=== PATIENT | female | born 1950 | race Caucasian/White ===

== ENCOUNTER 2020-10-02 08:53 | Outpatient (REF) | payer MEDICARE, SELFPAY ==
--- NOTE | ~2020-10-02 | XR_ITS ---
EXAMINATION: XR CHEST CLINICAL INFORMATION: B94.8 - Sequelae of other specified infectious and parasitic COMPARISON: Chest radiographs 12/02/2019, 10/17/2019 TECHNIQUE: 2 views of the chest were obtained. FINDINGS: The lungs are clear. Pulmonary opacities noted on prior exams have resolved. The vascularity is normal. The heart is normal in size. The costophrenic sulci are clear. Mediastinal contours are unremarkable. There are mild degenerative changes thoracic spine. XR/XR chest 2V IMPRESSION: Lungs clear.
== END 2020-10-02 08:54 | disposition home or self-care (01) ==
LOC: HO.HMGCX 08:53
PROVIDERS: PCP Internal Medicine; Visit Provider Internal Medicine
DX: B94.8 Sequelae of other specified infectious and parasitic diseases (principal)
CPT/HCPCS: 71046

== ENCOUNTER 2020-10-07 14:38 | Outpatient (REF) | payer MEDICARE, SELFPAY ==
--- NOTE | 2020-10-07 16:35 | PFT_ITS ---
INDICATION: Sequelae of other infections. SPIROMETRY: The FEV1 to FVC 90% with an FEV1 of 2.12 L, which is 104% predicted, and an FVC of 2.35 L, which is 87% predicted. No significant response to bronchodilators noted. Maximum voluntary ventilation 126% predicted. TOTAL LUNG CAPACITY: 86% predicted with an expiratory reserve volume of 27% predicted. DIFFUSION CAPACITY: DLCO 67% predicted. COMPARISONS: None. INTERPRETATION: No obstructive nor restrictive ventilatory defects identified. No significant response to bronchodilators noted. Normal maximum voluntary ventilation. The patient does have a mild isolated diffusion impairment. Therefore, occult interstitial lung conditions and/or pulmonary vascular conditions could not be ruled out. Correction for hemoglobin also will be helpful. Clinical correlation warranted. MD DIMPLE Mcclain/COURT / [id number]
== END 2020-10-07 14:39 | disposition home or self-care (01) ==
LOC: HO.RESP 14:38
PROVIDERS: PCP Internal Medicine; Visit Provider Internal Medicine
DX: B94.8 Sequelae of other specified infectious and parasitic diseases (principal); R06.02 Shortness of breath
CPT/HCPCS: 94060; 94727; 94729

== ENCOUNTER 2020-10-15 13:38 | Outpatient (REF) | payer MEDICARE, SELFPAY ==
--- NOTE | 2020-10-15 | PFT_ITS ---
SPIROMETRY: FEV1 of 98% of predicted at 2.00 L. FVC 84% of predicted at 2.25 L. FEV1 to FVC ratio of 0.89. No bronchodilator response. METHACHOLINE CHALLENGE: The patient had no change in FEV1 over the full range of administered methacholine concentrations. IMPRESSION: Normal spirometry. No bronchodilator response. Negative methacholine challenge test. MD ROBERTO CARLOS Dowd/COURT / [id number]
== END 2020-10-15 13:39 | disposition home or self-care (01) ==
LOC: HO.RESP 13:38
PROVIDERS: PCP Internal Medicine; Visit Provider Internal Medicine
DX: B94.9 Sequelae of unspecified infectious and parasitic disease (principal)
CPT/HCPCS: 94070

== ENCOUNTER 2022-07-22 11:24 | Outpatient (REF) | payer MEDICARE, SELFPAY ==
[2022-07-22 12:10] LABS: Influenza A PCR NEGATIVE (Negative); Influenza B PCR NEGATIVE (Negative); Resp Syncy Virus RNA Qual PCR NEGATIVE (Negative); SARS COV2 PCR INHOUSE NEGATIVE (Negative)
== END 2022-07-22 11:25 | disposition home or self-care (01) ==
LOC: HO.LNP 11:24
PROVIDERS: Visit Provider Internal Medicine
DX: R43.9 Unspecified disturbances of smell and taste (principal); J02.9 Acute pharyngitis, unspecified; Z20.822 Contact with and (suspected) exposure to COVID-19
CPT/HCPCS: 0241U

== ENCOUNTER 2023-01-08 06:08 | Outpatient (REF) | payer MEDICARE, SELFPAY ==
[2023-01-08 11:22] LABS: MANUAL DIFF FLAG NO
[2023-01-08 11:28] LABS: Basophils Absolute Auto 0.1 X10*3/uL (0.0-0.2); Basophils Percent Auto 1.3 % (0-2); Eosinophils Absolute Auto 0.3 X10*3/uL (0.0-0.4); Eosinophils Percent Auto 7.1 % (0-4); Hematocrit 42.8 % (37.0-47.0); Hemoglobin 13.7 g/dl (12.0-16.0); Imm Gran Abs Auto 0.01 X10*3/uL (0.00-0.03); Imm Gran Pct Auto 0.2 % (0.0-0.4); Lymphocytes Percent Auto 43.7 % (20-40); Mean Corpuscular Hemoglobin 30.3 pg (27.0-33.0); Mean Corpuscular Volume 94.7 fL (80.0-98.0); Monocytes Absolute Auto 0.7 X10*3/uL (0.1-1.2); Monocytes Percent Auto 16.3 % (2-11); Neutrophils Absolute Auto 1.4 x10*3/uL (2.0-8.3); Neutrophils Percent Auto 31.4 % (45-73); Platelet Count 293 X10*3/uL (160-400); Red Blood Count 4.52 X10*6/uL (4.20-5.50); Red Cell Distribution Width 12.2 % (11.0-16.0); White Blood Count 4.5 X10*3/uL (4.8-10.8)
[2023-01-08 12:29] LABS: Alanine Aminotransferase 21 U/L (0-31); Anion Gap 15 (12-20); Aspartate Amino Transferase 21 U/L (5-31); Blood Urea Nitrogen 23 mg/dL (9-16); Calcium 9.2 mg/dL (8.4-10.2); Carbon Dioxide 26 mmol/L (22-29); Chloride 104 mmol/L (96-108); Cholesterol 203 mg/dL; Estimated Glomerular Filt Rate > 60; Glucose Fasting 110 mg/dL (60-99); HDL Cholesterol 48 mg/dL; Iron 118 mcg/dL (30-160); LDL Cholesterol Calculated 119 mg/dl; Percent Iron Saturation 45 % (15-50); Potassium 4.4 mmol/L (3.3-5.1); Sodium 141 mmol/L (135-145); Total Iron Binding Capacity 260 mcg/dL (228-428); Triglycerides 184 mg/dL; Unsaturated Iron Binding 142 ug/dL
[2023-01-08 13:06] LABS: Vitamin D 25-OH Total 72.3 ng/mL (>30)
== END 2023-01-08 06:09 | disposition home or self-care (01) ==
LOC: HO.HMGCLDS 06:08
PROVIDERS: PCP Internal Medicine; Visit Provider Internal Medicine
DX: I10 Essential (primary) hypertension (principal); D64.9 Anemia, unspecified; Z78.0 Asymptomatic menopausal state
CPT/HCPCS: 36415; 80048; 80061; 82306; 83540; 84450; 84460; 85025

== ENCOUNTER 2023-11-11 08:20 | Outpatient (AMB) | payer MEDICARE, SELFPAY ==
[2023-11-11 08:29] VITALS: BP 126/70; PULSE 81; O2SAT 96; BMI 26.2
--- NOTE | 2023-11-11 08:29 | MHC.PC.OV ---
Vital Signs 11/11/23 08:29 Height 5 ft 1.5 in Weight 141 lb BMI 26.2 BP 126/70 Blood Pressure Location Lt brachial Position Sitting Pulse 81 Pulse Source Pulse Oximeter Pulse Oximetry (%) 96 Oxygen Delivery Method Room Air Intake Visit Reasons: PE Intake Note: Pt is here today for her PE: last colonscopy 2020, bone density scan 10/02/20 Allergies No Known Allergies [No Known Allergies*] Allergy (Verified 11/11/23 08:50) Medication List - Last Reconciled 11/11/23 by Yumi Sifuentes MD albuterol sulfate 90 mcg/actuation 2 inhalations inhalation Q6H PRN antiarthritic combination no.2 (glucosamine-chondroitin) mg PO enalapril maleate 20 mg PO DAILY multivitamin 1 tab PO DAILY Tobacco use date assessed: 11/11/23 Fall risk assessment: No Falls in past year Last assessed Fall Risk: 11/11/23 Dental Screening Dental Screen Date: 11/11/23 Did you have a dental visit in the last 12 months?: Yes Did you have a dental problem in the last 6 months where you did not have access to dental care?: No Was dental information given to patient?: Patient has dentist HPI PE HPI Details -73 year-old lady, here today for her physical exam. She has hypertension, currently stable and controlled on enalapril. She has been feeling well, with no complaints of any fatigue, no chest pain, no lightheadedness, shortness of breath. She is due for her repeat screening colonoscopy, last [address] Douglas in 2015 which showed presence of diverticulosis and external and internal hemorrhoids, has positive family history for Crohn's disease mother had it . She does not want to get screening mammogram or bone density scan done. Goes 3 times a week to the [facility] to exercise, and has been following a healthy diet. She is up-to-date with her vaccinations but has not had RSV . She gets occasional wheezing when she chases after her granddaughter, would like a refill on her albuterol inhaler which she uses only as needed. 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 1. Little interest or pleasure in doing things: not at all 2. Feeling down, depressed, or hopeless: not at all 3. Trouble falling or staying asleep, or sleeping too much: not at all 4. Feeling tired or having little energy: not at all 5. Poor appetite or overeating: not at all 6. Feeling bad about yourself - or that you are a failure or have let yourself or your family down: not at all 7. Trouble concentrating on things, such as reading the newspaper or watching television: not at all 8. Moving or speaking so slowly that other people could have noticed. Or the opposite - being so fidgety or restless that you have been moving around a lot more than usual: not at all 9. Thoughts that you would be better off or of hurting yourself in some way: not at all Total score: 0 Depression Screening Interpretation: Negative Depression Screening Done: Yes 16699 - PHQ-9 Billing: Yes Source: Developed by Drs. Td Martinez, Trisha Hernandez, Fabiano Cook and colleagues, with an educational maryellen from [employer]. Thrive Questionnaire Date Thrive assessed: 11/11/23 I am a: Patient What is your living situation today?: I have a steady place to live Within the past 12 months, did the food you bought not last and you didn't have the money to get more?: Never true Within the past 12 months, did you worry whether your food would run out before you got money to buy more?: Never true Do you have trouble paying for medicines?: No Do you have trouble getting transportation to medical appointments?: No Do you have trouble paying your heating and electricity bill?: No Do you have trouble taking care of your child, family member or friend?: No Do you have trouble with day-to-day activities such as bathing, preparing meals, shopping, managing finances, etc.?: No Are you currently unemployed and looking for a job?: No Are you interested in more education?: No THRIVE Score: 0 AUDIT C Alcohol Use Questionnaire (AUDIT-C) 1. How often do you have a drink containing alcohol?: Never Total Score: 0 MULU-7 AMB Questionnaire MULU-7 Date MULU - 7 assessed: 11/11/23 Feeling nervous, anxious, or on edge: 0 = Not at all Not being able to stop or control worryin = Not at all Worrying too much about different things: 0 = Not at all Trouble relaxin = Not at all Being so restless that it is hard to sit still: 0 = Not at all Becoming easily annoyed or irritable: 0 = Not at all Feeling afraid as if something awful might happen: 0 = Not at all Total MULU-7 score (0-4 normal; 5-9 mild; 10-14 moderate; 15-21 severe): 0 Source: Developed by Drs. Td Martinez, Trisha Hernandez, Fabiano Cook and colleagues, with an educational maryellen from [employer]. MULU-7 Assessment Billing MULU-7 Assessment Tool: MULU-7 Assessment 65292 Review of Systems Const Denies body aches, Denies fatigue, Denies fever(s), Denies headache(s), Denies weakness and Reports weight gain Eyes Details: Has beginning cataracts goes to [facility], sees Dr. Holm Reports other (Up-to-date with her eye exams) ENT Details: Gets dental prophylaxis every 6 months Denies dysphagia, Denies dizziness, Denies headache(s) and Reports hearing loss (Wears hearing aids) Card Denies chest pain, Denies lightheadedness, Denies palpitations and Denies dyspnea Resp Denies chest congestion, Denies cough and Denies dyspnea GI Denies abdominal pain, Denies change in bowel habits, Denies dysphagia and Denies heartburn Reports no additional complaints Musc Reports no additional complaints Skin/Breast Denies breast pain, Denies breast mass, Denies dry skin, Denies lesions and Denies rash Neuro Denies dizziness, Denies headache(s) and Denies weakness Psych Reports no additional complaints Endo Denies fatigue, Denies polydipsia, Denies polyuria and Denies palpitations Mushtaq/Lymph Denies easy bruising Aller/Immun Denies seasonal rhinorrhea Physical exam (Primary Care) Vital Signs: Last Vital Signs Pulse 81 11/11/23 08:29 BP 126/70 11/11/23 08:29 Pulse Ox 96 11/11/23 08:29 Oxygen Delivery Method Room Air 11/11/23 08:29 BMI result Body Mass Index 26.2 Tobacco/Smoking Status: Tobacco use Status Tobacco use date assessed 11/11/23 11/11/23 08:32 Patient Tobacco Use Status Never used Tobacco 11/11/23 08:32 e-Cigarette/Vaping Use Never Used 11/11/23 08:32 PHQ-9: PHQ-9 Score PHQ-9: Total score 0 11/11/23 08:42 Depression Screening Interpretation: Negative Thrive Assessment: Date of Thrive Assessment Date Thrive assessed 11/11/23 11/11/23 08:42 Advance Care Planning discussion: Completed/Scanned Date of discussion: 11/11/23 Who was present: Patient Forms completed: Health Care Proxy and MOLST Time spent: 16-45 minutes Actual minutes spent: 16 Const Other: Alert oriented x3, no acute distress noted, ambulatory with normal gait Orientation/consciousness: patient oriented x3 [facility] Head: Yes normocephalic and Yes atraumatic Ears: external ears normal and EAC's normal (Has bilateral hearing aids) Eyes General: appearance normal, both eyes and all related structures Neck Neck: Yes full ROM, Yes no lymphadenopathy, Yes no meningeal signs and Yes supple Thyroid: Thyroid normal (Nonpalpable) Carotids: no bruits Chest Chest palpation & inspection: normal inspection of the chest Breast/axilla inspection: normal inspection of the breasts Breast/axilla palpation: normal palpation of the breasts and normal palpation of the axillae Resp Effort & Inspection: normal respiratory effort and able to speak in complete sentences Auscultation: clear to auscultation bilaterally Cardio Other: S1-S2 present regular rate and rhythm, no murmurs Bruits: no abdominal aortic bruits GI Inspection: Yes normal to inspection Palpation (GI): No Abdominal aortic bruit present, Soft to palpation, nontender, no guarding and no masses General: Yes no CVA tenderness Back/Spine/Pelvis Back: no CVA tenderness and No back tenderness Skin General skin exam: no rashes or lesions noted and turgor normal Neuro General: patient oriented x3, moves all extremities, Normal light touch and pain sensation, no meningeal signs, no focal motor deficits and CN's II-XI intact bilaterally Cognition (Neuro): normal cognition Gait exam (Neuro): Normal gait present Extrem General: Yes normal to inspection, Yes full ROM, Yes no joint enlargement, Yes no clubbing, cyanosis or edema, Yes no pedal edema, Yes no calf tenderness and Yes normal gait Psych Appearance: grossly normal and well kempt Mental Status: mental status grossly normal Speech and movement: Normal speech and movement present Affect: normal affect Attitude: cooperative Thought process: Normal thought process present Thought content: Normal thought content present Assessment and Plan Assessment & Plan (1) Annual visit for general adult medical examination with abnormal findings: Code(s): Z00.01 - Encounter for general adult medical examination with abnormal findings Plan: Will check appropriate labs. Continue regular dental visit every 6 months and regular eye exams, at least every 2 years, goes to [facility] Take adequate calcium in diet and vitamin-D 3 at 2000 IU per cap once a day, in addition to weight-bearing exercises to help maintain good muscle tone and weight control. Instructed to do self-breast exam patient however declines getting mammograms or bone density scans. Up-to-date with her vaccinations but still thinking about whether to get the RSV vaccine. Reminded to get her repeat colonoscopy done, sees Dr. Douglas, patient states that she will contacting and schedule appointment. (2) Essential hypertension: Code(s): I10 - Essential (primary) hypertension Plan: Blood pressure at goal of less than 130/80. Continue with enalapril. Reinforced importance of following a low sodium diet, getting regular exercise, and lowering stress levels. (3) Exercise induced bronchospasm: Code(s): J45.990 - Exercise induced bronchospasm Plan: Prescription sent for albuterol inhaler, use as directed (4) Exercise-induced leg cramps: Code(s): R25.2 - Cramp and spasm Plan: Advised to stay well-hydrated, and take [id number] magnesium supplements Orders: Orders Basic Metabolic Panel Fasting Today I10 - Essential (primary) hypertension, J45.990 - Exercise induced bronchospasm, Z00.01 - Encounter for general adult medical examination with abnormal findings, Z78.0 - Asymptomatic menopausal state Aspartate Amino Transferase Today I10 - Essential (primary) hypertension, J45.990 - Exercise induced bronchospasm, Z00.01 - Encounter for general adult medical examination with abnormal findings, Z78.0 - Asymptomatic menopausal state Lipid Panel Today I10 - Essential (primary) hypertension, J45.990 - Exercise induced bronchospasm, Z00.01 - Encounter for general adult medical examination with abnormal findings, Z78.0 - Asymptomatic menopausal state Magnesium Today I10 - Essential (primary) hypertension, J45.990 - Exercise induced bronchospasm, Z00.01 - Encounter for general adult medical examination with abnormal findings, Z78.0 - Asymptomatic menopausal state Alanine Aminotransferase Today I10 - Essential (primary) hypertension, J45.990 - Exercise induced bronchospasm, Z00.01 - Encounter for general adult medical examination with abnormal findings, Z78.0 - Asymptomatic menopausal state Vitamin D 25-OH Total Today I10 - Essential (primary) hypertension, J45.990 - Exercise induced bronchospasm, Z00.01 - Encounter for general adult medical examination with abnormal findings, Z78.0 - Asymptomatic menopausal state Hemoglobin A1c Today I10 - Essential (primary) hypertension, J45.990 - Exercise induced bronchospasm, Z00.01 - Encounter for general adult medical examination with abnormal findings, Z78.0 - Asymptomatic menopausal state Medications: New albuterol sulfate 90 mcg/actuation 2 puffs inhalation Q6H PRN 8.5 grams 1RF shortness of breath or wheezing Refilled enalapril maleate 20 mg PO DAILY 90 tabs 4RF I10 - Essential (primary) hypertension Coding Level of Care Code Est Pt Prev Care >65y(38356) Diagnoses Annual visit for general adult medical examination with abnormal findings Z00.01 Essential hypertension I10 Exercise induced bronchospasm J45.990 Exercise-induced leg cramps R25.2 Additional Codes MULU-7 Assessment Billing - MULU-7 Assessment Tool: MULU-7 Assessment 81093 ([id number]) Vital Signs *Quality* - Advance Care Planning discussion: Completed/Scanned ([id number]) Vital Signs *Quality* - Time spent: 16-45 minutes ([id number])
== END 2023-11-11 09:25 | disposition home or self-care (01) ==
PROVIDERS: PCP Internal Medicine; Visit Provider Internal Medicine
DX: Z00.00 Encounter for general adult medical examination without abnormal findings (principal); I10 Essential (primary) hypertension; J45.990 Exercise induced bronchospasm; R25.2 Cramp and spasm
CPT/HCPCS: 1123F; 99397; 99497

== ENCOUNTER 2023-12-14 06:10 | Outpatient (REF) | payer MEDICARE, SELFPAY ==
[2023-12-14 10:43] LABS: Estimated Average Glucose 163 mg/dL; Hemoglobin A1c % 7.3 % (<6.0)
[2023-12-14 10:59] LABS: Alanine Aminotransferase 31 U/L (0-31); Anion Gap 15 (12-20); Aspartate Amino Transferase 21 U/L (5-31); Blood Urea Nitrogen 17 mg/dL (9-16); Calcium 9.3 mg/dL (8.4-10.2); Carbon Dioxide 25 mmol/L (22-29); Chloride 106 mmol/L (96-108); Cholesterol 204 mg/dL (<200); Estimated Glomerular Filt Rate > 60; Glucose Fasting 158 mg/dL (60-99); HDL Cholesterol 40 mg/dL (>40); LDL Cholesterol Calculated 127 mg/dL (<100); Magnesium 2.2 mg/dL (1.6-2.6); Potassium 4.7 mmol/L (3.3-5.1); Sodium 141 mmol/L (135-145); Triglycerides 187 mg/dL (<150)
== END 2023-12-14 06:11 | disposition home or self-care (01) ==
LOC: HO.HMGCLDS 06:10
PROVIDERS: PCP Internal Medicine; Visit Provider Internal Medicine
DX: Z00.01 Encounter for general adult medical examination with abnormal findings (principal); I10 Essential (primary) hypertension; J45.990 Exercise induced bronchospasm; Z78.0 Asymptomatic menopausal state
CPT/HCPCS: 36415; 80048; 80061; 82306; 83036; 83735; 84450; 84460

== ENCOUNTER 2023-12-30 11:16 | Outpatient (AMB) | payer MEDICARE, SELFPAY ==
[2023-12-30 11:20] VITALS: BP 120/70; PULSE 91; O2SAT 98; BMI 25.9
--- NOTE | 2023-12-30 11:20 | A.OFFPC_ITS ---
Vital Signs 12/30/23 11:20 Height 5 ft 1.5 in Weight 139 lb 8 oz BMI 25.9 BP 120/70 Blood Pressure Location Lt brachial Position Sitting Pulse 91 Pulse Source Pulse Oximeter Pulse Oximetry (%) 98 Oxygen Delivery Method Room Air Intake Visit Reasons: Lt cat surgery 01/04 & Rt eye 01/25 Dr. Mckinley Intake Note: Pt is here today for LT eye cataract surgery on 01/04 and Rt eye cataract surgery on 01/[address] Mckinley. Allergies No Known Allergies [No Known Allergies*] Allergy (Verified 12/30/23 12:09) Medication List - Last Reconciled 12/30/23 by Yumi Sifuentes MD albuterol sulfate 90 mcg/actuation 2 inhalations inhalation Q6H PRN albuterol sulfate 90 mcg/actuation 2 puffs inhalation Q6H PRN antiarthritic combination no.2 (glucosamine-chondroitin) mg PO enalapril maleate 20 mg PO DAILY ketorolac 0.5% 1 drp ophthalmic (eye) QID multivitamin 1 tab PO DAILY Tobacco use date assessed: 12/30/23 Fall risk assessment: No Falls in past year Last assessed Fall Risk: 12/30/23 Dental Screening Dental Screen Date: 12/30/23 Did you have a dental visit in the last 12 months?: Yes Did you have a dental problem in the last 6 months where you did not have access to dental care?: No Was dental information given to patient?: Patient has dentist HPI Lt cat surgery 01/04 & Rt eye 01/25 Dr. Mckinley HPI Details 73-year-old lady with history of hyperte nsion, and newly diagnosed diabetes mellitus, here today for preoperative exam for cataract surgery, scheduled for LT eye on 01/04 and Rt eye on 01/25 , requested by Dr. Mckinley. She admits to not following any diet, and has not been as active as she was in the past, takes walks every now and then for exercise. 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 How often do you have a drink containing alcohol?: Never 3. How often do you have six or more drinks on one occasion?: Never Total Score: 0 Score Reviewed/Action Taken: Yes MULU-7 AMB Questionnaire MULU-7 Date MULU - 7 assessed: 11/11/23 Source: Developed by Drs. Td Martinez, Trisha Hernandez, Fabiano Cook and colleagues, with an educational maryellen from [email or web address]. Review of Systems Const Denies body aches, Denies fatigue, Denies fever(s), Denies headache(s), Denies weakness and Reports weight gain Eyes Details: Has cataracts goes to [facility], sees Dr. Holm scheduled for surgery Reports other (Up-to-date with her eye exams) ENT Details: Gets dental prophylaxis every 6 months Denies dysphagia, Denies dizziness, Denies headache(s) and Reports hearing loss (Wears hearing aids) Card Denies chest pain, Denies lightheadedness, Denies palpitations and Denies dyspnea Resp Denies chest congestion, Denies cough and Denies dyspnea GI Denies abdominal pain, Denies change in bowel habits, Denies dysphagia and Denies heartburn Reports no additional complaints Musc Reports no additional complaints Skin/Breast Denies breast pain, Denies breast mass, Denies dry skin, Denies lesions and Denies rash Neuro Denies dizziness, Denies headache(s) and Denies weakness Psych Reports no additional complaints Endo Denies fatigue, Denies polydipsia, Denies polyuria and Denies palpitations Mushtaq/Lymph Denies easy bruising Aller/Immun Denies seasonal rhinorrhea Physical exam (Primary Care) Vital Signs: Last Vital Signs Pulse 91 12/30/23 11:20 BP 120/70 12/30/23 11:20 Pulse Ox 98 12/30/23 11:20 Oxygen Delivery Method Room Air 12/30/23 11:20 BMI result Body Mass Index 25.9 Tobacco/Smoking Status: Tobacco use Status Tobacco use date assessed 12/30/23 12/30/23 11:22 Patient Tobacco Use Status Never used Tobacco 12/30/23 11:22 e-Cigarette/Vaping Use Never Used 12/30/23 11:22 Thrive Assessment: Date of Thrive Assessment Date Thrive assessed 11/11/23 12/30/23 11:22 Const Other: Alert oriented x3, no acute distress noted, ambulatory with normal gait Orientation/consciousness: patient oriented x3 HENMT Head: Yes normocephalic and Yes atraumatic Ears: external ears normal and EAC's normal (Has bilateral hearing aids) Eyes General: appearance normal, both eyes and all related structures Neck Neck: Yes full ROM, Yes no lymphadenopathy, Yes no meningeal signs and Yes supple Thyroid: Thyroid normal (Nonpalpable) Carotids: no bruits Chest Chest palpation & inspection: normal inspection of the chest Breast/axilla inspection: normal inspection of the breasts Breast/axilla palpation: normal palpation of the breasts and normal palpation of the axillae Resp Effort & Inspection: normal respiratory effort and able to speak in complete sentences Auscultation: clear to auscultation bilaterally Cardio Other: S1-S2 present regular rate and rhythm, no murmurs Bruits: no abdominal aortic bruits GI Inspection: Yes normal to inspection Palpation (GI): No Abdominal aortic bruit present, Soft to palpation, nontender, no guarding and no masses General: Yes no CVA tenderness Back/Spine/Pelvis Back: no CVA tenderness and No back tenderness Skin General skin exam: no rashes or lesions noted and turgor normal Neuro General: patient oriented x3, moves all extremities, Normal light touch and pain sensation, no meningeal signs, no focal motor deficits and CN's II-XI intact bilaterally Cognition (Neuro): normal cognition Gait exam (Neuro): Normal gait present Extrem General: Yes normal to inspection, Yes full ROM, Yes no joint enlargement, Yes no clubbing, cyanosis or edema, Yes no pedal edema, Yes no calf tenderness and Yes normal gait Psych Appearance: grossly normal and well kempt Mental Status: mental status grossly normal Speech and movement: Normal speech and movement present Affect: normal affect Attitude: cooperative Thought process: Normal thought process present Thought content: Normal thought content present Results Reviewed Results Reviewed: Laboratory Tests 12/14/23 06:34 Estimat Average Glucose 163 Hemoglobin A1c % 7.3 H Name: Shila Driscoll Age/Sex: 73/F : 1950 Unit#: [id number] Attend Dr: Yumi Sifuentes MD Re12/14/23 Status: DEP REF Location: [facility] Disch: SPEC : [id number] ANA: 12/14/23 STATUS: COMP REQ : [id number] RECD: 12/14/23-[address]: Yumi Sifuentes MD COMP: 12/14/23-1115 ENTERED: 12/14/23-[address]: ORDERED: Met Prof Fast, MG, AST, ALT, Lipid Panel, Vitamin D 25-OH Test Result Flag Reference Sodium 141 135-145 mmol/L Potassium 4.7 3.3-5.1 mmol/L CL 106 96-108 mmol/L CO2 25 22-29 mmol/L Gap 15 12-20 BUN 17 H 9-16 mg/dL Creat 0.79 0.5-1.4 mg/dL EGFR > 60 NOTE: For -Iranian individuals, multiply the result by 1.210. Chronic Kidney Disease: Estimated GFR < 60 mL/min/1.73m2 Severe Kidney Disease: Estimated GFR < 15 mL/min/1.73m2 FBS 158 H 60-99 mg/dL A fasting glucose of 126 mg/dl or greater on more than one occasion is considered diagnostic of diabetes. CA 9.3 8.4-10.2 mg/dL Magnesium 2.2 1.6-2.6 mg/dL AST (GOT) 21 5-31 U/L ALT (GPT) 31 0-31 U/L Triglyceride 187 H <150 mg/dL Desirable Triglyceride: less than 150 mg/dL Borderline High Triglyceride 150-199 mg/dL High Triglyceride: 200-499 mg/dL Very High Triglyceride: greater than or equal to 5OO mg/dL Cholesterol 204 H <200 mg/dL Desirable Cholesterol: less than 200 mg/dL Borderline High Cholesterol: 200-239 mg/dL High Cholesterol: greater than 239 mg/dL LDL Calculated 127 H <100 mg/dL Desirable LDL: less than 100 mg/dL Near Optimal/Above Optimal LDL: 110-129 mg/dL Borderline High LDL: 130-159 mg/dL High LDL: 160-189 mg/dL Very High LDL: greater than or equal to 190 mg/dL HDL 40 L >40 mg/dL Desirable HDL: greater than 40 mg/dL Note: This HDL assay may give artificially low results in patients with liver disease. Vit D 25-OH Tot 59.0 >30 ng/mL Health Based Reference Values* < 20 ng/mL Deficient 20-30 ng/mL Insufficient > 30 ng/mL Sufficient Assessment and Plan Assessment & Plan (1) Encounter for pre-operative examination: Code(s): Z01.818 - Encounter for other preprocedural examination Plan: Pt is a 73 year old lady with newly diagnosed diabetes mellitus, has hypertension here for preoperative clearance for LT eye cataract surgery on 01/04 and Rt eye cataract surgery on 01/[address] Mckinley. She has no history of any cardiac disease, has reactive airway disease for which she takes albuterol as needed. Preoperative exam was unremarkable. Patient with a low cardiac risk index for proposed surgery . (2) Essential hypertension: Code(s): I10 - Essential (primary) hypertension Plan: Blood pressure at goal of less than 130/80. Continue enalapril maleate 20 mg daily. Reinforced importance of following a low sodium diet, getting regular exercise, and lowering stress levels. (3) Type 2 diabetes mellitus without complication, without long-term current use of insulin: Code(s): E11.9 - Type 2 diabetes mellitus without complications Plan: Really diagnosed, patient would like to try controlling her diabetes with diet and exercise. Will repeat another hemoglobin A1c, fasting glucose, basic metabolic panel and urine for microalbumin screening in 3 months. Reinforced importance of following recommended diet, getting regular exercise, recommend yearly diabetes eye screening to check for retinopathy Orders: Orders Alanine Aminotransferase 04/18/24 E11.9 - Type 2 diabetes mellitus without complications, I10 - Essential (primary) hypertension, Z01.818 - Encounter for other preprocedural examination Basic Metabolic Panel Fasting 04/18/24 E11.9 - Type 2 diabetes mellitus without complications, I10 - Essential (primary) hypertension, Z01.818 - Encounter for other preprocedural examination Microalbumin, Random (w Creat) 04/18/24 E11.9 - Type 2 diabetes mellitus without complications, I10 - Essential (primary) hypertension, Z01.818 - Encounter for other preprocedural examination Vitamin D 25-OH Total 04/18/24 E11.9 - Type 2 diabetes mellitus without complications, I10 - Essential (primary) hypertension, Z01.818 - Encounter for other preprocedural examination Hemoglobin A1c 04/18/24 E11.9 - Type 2 diabetes mellitus without complications, I10 - Essential (primary) hypertension, Z01.818 - Encounter for other preprocedural examination Aspartate Amino Transferase 04/18/24 E11.9 - Type 2 diabetes mellitus without complications, I10 - Essential (primary) hypertension, Z01.818 - Encounter for other preprocedural examination Lipid Panel 04/18/24 E11.9 - Type 2 diabetes mellitus without complications, I10 - Essential (primary) hypertension, Z01.818 - Encounter for other preprocedural examination Coding Level of Care Code Est Pt Level 4 (79707) Complex EM visit Add On G2211 Diagnoses Encounter for pre-operative examination Z01.818 Essential hypertension I10 Type 2 diabetes mellitus without complication, without long-term current use of insulin E11.9
== END 2023-12-30 12:02 | disposition home or self-care (01) ==
PROVIDERS: PCP Internal Medicine; Visit Provider Internal Medicine
DX: Z01.818 Encounter for other preprocedural examination (principal); I10 Essential (primary) hypertension; E11.9 Type 2 diabetes mellitus without complications
CPT/HCPCS: 99214; G2211

== ENCOUNTER 2024-04-29 06:31 | Outpatient (REF) | payer MEDICARE, SELFPAY ==
[2024-04-29 11:24] LABS: Estimated Average Glucose 180 mg/dL; Hemoglobin A1C 211.0533 umol/L; Hemoglobin A1c % 7.9 % (<6.0); Total Hemoglobin (HGBA1C) 3362.2334 umol/L
[2024-04-29 11:45] LABS: Vitamin D 25-OH Total 75.1 ng/mL (>30)
[2024-04-29 11:50] LABS: Creatinine Urine 162.72 mg/dL; Microalbum/Creatinine Ratio Ur 7.3 ug/mg cr (<30)
[2024-04-29 12:38] LABS: Alanine Aminotransferase 34 U/L (0-31); Anion Gap 12 (12-20); Aspartate Amino Transferase 19 U/L (5-31); Blood Urea Nitrogen 17 mg/dL (9-16); Calcium 9.4 mg/dL (8.4-10.2); Carbon Dioxide 27 mmol/L (22-29); Chloride 106 mmol/L (96-108); Cholesterol 237 mg/dL (<200); Estimated Glomerular Filt Rate > 60; Glucose Fasting 159 mg/dL (60-99); HDL Cholesterol 39 mg/dL (>40); LDL Cholesterol Calculated 121 mg/dL (<100); Potassium 4.4 mmol/L (3.3-5.1); Sodium 141 mmol/L (135-145); Triglycerides 385 mg/dL (<150)
== END 2024-04-29 06:32 | disposition home or self-care (01) ==
LOC: HO.HMGCLDS 06:31
PROVIDERS: PCP Internal Medicine; Visit Provider Internal Medicine
DX: E11.9 Type 2 diabetes mellitus without complications (principal); I10 Essential (primary) hypertension; Z01.818 Encounter for other preprocedural examination
CPT/HCPCS: 36415; 80048; 80061; 82043; 82306; 82570; 83036; 84450; 84460

== ENCOUNTER 2024-05-05 10:51 | Outpatient (AMB) | payer MEDICARE, SELFPAY ==
--- NOTE | 2024-05-05 10:48 | MHC.PC.OV ---
Intake Visit Reasons: 3 month follow up Allergies No Known Allergies [No Known Allergies*] Allergy (Verified 05/05/24 11:02) Medication List - Last Reconciled 05/05/24 by Yumi Sifuentes MD albuterol sulfate 90 mcg/actuation 2 inhalations inhalation Q6H PRN albuterol sulfate 90 mcg/actuation 2 puffs inhalation Q6H PRN antiarthritic combination no.2 (glucosamine-chondroitin) mg PO enalapril maleate 20 mg PO DAILY ketorolac 0.5% 1 drp ophthalmic (eye) QID multivitamin 1 tab PO DAILY Tobacco use date assessed: 05/05/24 Fall risk assessment: No Falls in past year Last assessed Fall Risk: 05/05/24 Dental Screening Dental Screen Date: 05/05/24 Did you have a dental visit in the last 12 months?: Yes Did you have a dental problem in the last 6 months where you did not have access to dental care?: No Was dental information given to patient?: Patient has dentist HPI 3 month follow up HPI Details 73-year-old lady with newly diagnosed diabetes mellitus currently trying to control through diet and exercise, has hyperlipidemia, hypertension, here today for follow-up. Patient states that she has been trying to follow recommended diet and has been going to the [facility] once a week to exercise. Had recent fasting labs done which showed diabetes mellitus not well controlled with conservative measures. Hemoglobin A1c came back at 7.9%, and fasting LDL cholesterol and triglycerides are elevated. Blood pressure staying stable and controlled on enalapril 20 mg taken once a day. Her microalbuminuria screening came back negative. 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 History of COVID-19 Essential hypertension Surgical History Hx of colonoscopy Hx of tonsillectomy Hx of tubal ligation Family History Father Alzheimer disease Stroke Brother Leukemia Maternal Grandmother Leukemia Mother Crohn's disease Social History Housing: House Alcohol intake: never Patient Tobacco Use Status: Never used Tobacco e-Cigarette/Vaping Use: Never Used service: No Current occupational status: retired Cognitive needs: No Hearing needs: Yes Vision needs: Yes Questionnaire Thrive Questionnaire Date Thrive assessed: 11/11/23 MULU-7 AMB Questionnaire MULU-7 Date MULU - 7 assessed: 11/11/23 Source: Developed by Drs. Td Martinez, Trisha Hernandez, Fabiano Cook and colleagues, with an educational maryellen from [employer]. Review of Systems Const Denies body aches, Denies fatigue, Denies fever(s), Denies headache(s) and Denies weakness Eyes Reports other (Up-to-date with her eye exams) ENT Details: Gets dental prophylaxis every 6 months Denies dysphagia, Denies dizziness, Denies headache(s) and Reports hearing loss (Wears hearing aids) Card Denies chest pain, Denies lightheadedness, Denies palpitations and Denies dyspnea Resp Denies chest congestion, Denies cough and Denies dyspnea GI Denies abdominal pain, Denies change in bowel habits, Denies dysphagia and Denies heartburn Reports no additional complaints Musc Reports no additional complaints Skin/Breast Denies breast pain, Denies breast mass, Denies dry skin, Denies lesions and Denies rash Neuro Denies dizziness, Denies headache(s) and Denies weakness Psych Reports no additional complaints Endo Denies fatigue, Denies polydipsia, Denies polyuria and Denies palpitations Mushtaq/Lymph Denies easy bruising Aller/Immun Denies seasonal rhinorrhea Physical exam (Primary Care) Tobacco/Smoking Status: Tobacco use Status Tobacco use date assessed 05/05/24 05/05/24 10:49 Patient Tobacco Use Status Never used Tobacco 05/05/24 10:49 e-Cigarette/Vaping Use Never Used 05/05/24 10:49 Thrive Assessment: Date of Thrive Assessment Date Thrive assessed 11/11/23 05/05/24 10:49 Telehealth Telehealth Telehealth Platform: [facility] Location of provider rendering services: practice address Location of patient: address on file Patient Identification confirmed using: Name, : Yes Telehealth method: video Patient verbally consented to treatment: Yes Patient verbally consented to billing insurance company: Yes Patient informed of any privacy concerns related to visit: Yes Minutes spent on Phone/Video with Pt.: 15 Results Reviewed Results Reviewed: Laboratory Tests 04/29/24 06:34 Estimat Average Glucose 180 Hemoglobin A1c % 7.9 H Urine Creatinine 162.72 Urine Microalbumin 12.0 Microalb/Creat Ratio 7.3 del: Shila Driscoll Age/Sex: 73/F : 1950 Unit#: [id number] Attend Dr: Yumi Sifuentes MD Re04/29/24 Status: DEP REF [id number] Disch: SPEC : [id number] ANA: 04/29/24 STATUS: COMP REQ : [id number] RECD: 04/29/24-[address]: Yumi Sifuentes MD COMP: 04/29/24 ENTERED: 04/29/[address]: ORDERED: Met Prof Fast, AST, ALT, Lipid Panel, Vitamin D 25-OH Test Result Flag Reference Sodium 141 135-145 mmol/L Potassium 4.4 3.3-5.1 mmol/L CL 106 96-108 mmol/L CO2 27 22-29 mmol/L Gap 12 12-20 BUN 17 H 9-16 mg/dL Creat 0.83 0.5-1.4 mg/dL EGFR > 60 NOTE: For -Swedish individuals, multiply the result by 1.210. Chronic Kidney Disease: Estimated GFR < 60 mL/min/1.73m2 Severe Kidney Disease: Estimated GFR < 15 mL/min/1.73m2 FBS 159 H 60-99 mg/dL A fasting glucose of 126 mg/dl or greater on more than one occasion is considered diagnostic of diabetes. CA 9.4 8.4-10.2 mg/dL AST (GOT) 19 5-31 U/L ALT (GPT) 34 H 0-31 U/L Triglyceride 385 H <150 mg/dL Desirable Triglyceride: less than 150 mg/dL Borderline High Triglyceride 150-199 mg/dL High Triglyceride: 200-499 mg/dL Very High Triglyceride: greater than or equal to 5OO mg/dL Cholesterol 237 H <200 mg/dL Desirable Cholesterol: less than 200 mg/dL Borderline High Cholesterol: 200-239 mg/dL High Cholesterol: greater than 239 mg/dL LDL Calculated 121 H <100 mg/dL Desirable LDL: less than 100 mg/dL Near Optimal/Above Optimal LDL: 110-129 mg/dL Borderline High LDL: 130-159 mg/dL High LDL: 160-189 mg/dL Very High LDL: greater than or equal to 190 mg/dL HDL 39 L >40 mg/dL Desirable HDL: greater than 40 mg/dL Note: This HDL assay may give artificially low results in patients with liver disease. Vit D 25-OH Tot 75.1 >30 ng/mL Health Based Reference Values* < 20 ng/mL Deficient 20-30 ng/mL Insufficient > 30 ng/mL Sufficient Coding Level of Care Code Tele Est Pt Level 4 (24156) Complex EM visit Add On G2211 Diagnoses Diabetes mellitus with hyperglycemia, without long-term current use of insulin E11.65 Mixed dyslipidemia E78.2 Assessment & Plan Assessment & Plan (1) Diabetes mellitus with hyperglycemia, without long-term current use of insulin: Code(s): E11.65 - Type 2 diabetes mellitus with hyperglycemia Category: Medical Plan: Discuss recent lab results with patient and , with no improvement of diabetes control through diet and exercise. Will start her on metformin ER 500 mg to take 1 tablet once a day with breakfast. Will refer to our diabetic nurse for dietary guidance and help with taking glucose levels, prescription sent for Accu-Chek meter, lancets and strips, check fasting blood sugar once a day before eating, and keep a log of the readings. Advised to do yearly diabetes retinopathy screening. Urine microalbuminuria screening came back negative. Inspect feet for any callus , sores, or lesions. Recommended to get yearly flu vaccine and COVID booster, , up-to-date with her pneumococcal and shingles vaccine. Continue enalapril 20 mg daily, goal blood pressure less than 130/80. (2) Mixed dyslipidemia: Code(s): E78.2 - Mixed hyperlipidemia Category: Medical Plan: Explained to patient and that goal LDL cholesterol is less than 100 mg/dL when you have diabetes mellitus. Will start on rosuvastatin 5 mg per tablet to take 1 tablet initially every other day. Combined this with adherence to healthy eating habits and getting regular exercise. Will repeat another fasting lipid panel and liver enzymes in 3 months' time Orders: Orders Alanine Aminotransferase 07/29/24 E11.65 - Type 2 diabetes mellitus with hyperglycemia, E78.2 - Mixed hyperlipidemia, I10 - Essential (primary) hypertension Aspartate Amino Transferase 07/29/24 E11.65 - Type 2 diabetes mellitus with hyperglycemia, E78.2 - Mixed hyperlipidemia, I10 - Essential (primary) hypertension Basic Metabolic Panel Fasting 07/29/24 E11.65 - Type 2 diabetes mellitus with hyperglycemia, E78.2 - Mixed hyperlipidemia, I10 - Essential (primary) hypertension Hemoglobin A1c 07/29/24 E11.65 - Type 2 diabetes mellitus with hyperglycemia, E78.2 - Mixed hyperlipidemia, I10 - Essential (primary) hypertension Lipid Panel 07/29/24.65 - Type 2 diabetes mellitus with hyperglycemia, E78.2 - Mixed hyperlipidemia, I10 - Essential (primary) hypertension Medications: New blood-glucose meter (FreeStyle Lite Meter kit) Check fasting blood sugar once a day before a meal 1 ea 0RF E11.65 - Type 2 diabetes mellitus with hyperglycemia metformin ER 500 mg PO DAILY 90 tabs 1RF E11.65 - Type 2 diabetes mellitus with hyperglycemia rosuvastatin 5 mg PO Q2D 3 months 45 tabs 2RF E11.65 - Type 2 diabetes mellitus with hyperglycemia, E78.2 - Mixed hyperlipidemia blood sugar diagnostic (FreeStyle Lite Strips) Check fasting blood sugar once a day before meal 50 ea 5RF E11.65 - Type 2 diabetes mellitus with hyperglycemia lancets (Easy Touch Safety Lancets) Check fasting blood sugar once a day before a meal 100 ea 4RF E11.65 - Type 2 diabetes mellitus with hyperglycemia
== END 2024-05-05 11:51 | disposition home or self-care (01) ==
PROVIDERS: PCP Internal Medicine; Visit Provider Internal Medicine
DX: E11.65 Type 2 diabetes mellitus with hyperglycemia (principal); E78.2 Mixed hyperlipidemia

== ENCOUNTER → 2024-05-05 10:51 | Outpatient (BNVA) | payer MEDICARE, SELFPAY | PROVIDERS: PCP Internal Medicine; Visit Provider Internal Medicine ==

== ENCOUNTER → 2024-05-12 10:23 | Outpatient (BNVA) | payer MEDICARE, SELFPAY | PROVIDERS: PCP Internal Medicine ==

== ENCOUNTER → 2024-05-19 09:53 | Outpatient (BNVA) | payer MEDICARE, SELFPAY | PROVIDERS: PCP Internal Medicine ==

== ENCOUNTER 2024-08-07 09:00 | Outpatient (AMB) | payer MEDICARE, SELFPAY ==
[2024-08-07 09:08] VITALS: BP 130/68; PULSE 98; O2SAT 97; BMI 25.1
--- NOTE | 2024-08-07 09:08 | A.OFFPC_ITS ---
Vital Signs 08/07/24 09:08 Height 5 ft 1.5 in Weight 135 lb BMI 25.1 BP 130/68 Blood Pressure Location Rt brachial Position Sitting Pulse 98 Pulse Oximetry (%) 97 Oxygen Delivery Method Room Air Intake Visit Reasons: 3 month follow up [phone] Intake Note: Pt is here today for her 3mo. Allergies No Known Allergies [No Known Allergies*] Allergy (Verified 08/07/24 09:46) Medication List - Last Reconciled 08/07/24 by Yumi Sifuentes MD albuterol sulfate 90 mcg/actuation 2 puffs inhalation Q6H PRN antiarthritic combination no.2 (glucosamine-chondroitin) mg PO blood sugar diagnostic (Accu-Chek Fe Plus test strips) Check fasting blood morgan gar before eating once a day blood-glucose meter (Accu-Chek Guide Glucose Meter) Check fasting blood sugar once a day before meal enalapril maleate 20 mg PO DAILY lancets (Accu-Chek Softclix Lancets) Check blood sugar once daily as directed lancing device with lancets (Accu-Chek Softclix Lancing Device+Lancets kit) CHECK FASTING BLOOD SUGARS ONCE A DAY BEFORE A MEAL metformin ER 500 mg PO BID 3 months multivitamin 1 tab PO DAILY rosuvastatin 5 mg PO Q2D 3 months Tobacco use date assessed: 08/07/24 Fall risk assessment: No Falls in past year Last assessed Fall Risk: 08/07/24 Dental Screening Dental Screen Date: 08/07/24 Did you have a dental visit in the last 12 months?: Yes Did you have a dental problem in the last 6 months where you did not have access to dental care?: No Was dental information given to patient?: Patient has dentist HPI 3 month follow up [phone] HPI Details 73 ear-old lady with past medical histor y significant for diabetes mellitus , hyperlipidemia, hypertension, here today for follow-up. She has been compliant with taking her medications, and has been following recommended diet. She has been going to the [facility] use the elliptical machine and a treadmill and has been walking regularly for exercise. Recent fasting labs showed improvement in her diabetes control now with A1c at 6.9%, and fasting lipids are within normal limits. She has been having intermittent episodes of pain in her right hip when she wakes up, present now for the last 3 days . Patient states that it usually gets better once he starts moving around. 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 1. Little interest or pleasure in doing things: not at all 2. Feeling down, depressed, or hopeless: not at all 3. Trouble falling or staying asleep, or sleeping too much: not at all 4. Feeling tired or having little energy: not at all 5. Poor appetite or overeating: not at all 6. Feeling bad about yourself - or that you are a failure or have let yourself or your family down: not at all 7. Trouble concentrating on things, such as reading the newspaper or watching television: not at all 8. Moving or speaking so slowly that other people could have noticed. Or the opposite - being so fidgety or restless that you have been moving around a lot more than usual: not at all 9. Thoughts that you would be better off or of hurting yourself in some way: not at all Total score: 0 Depression Screening Interpretation: Negative Depression Screening Done: Yes 83293 - PHQ-9 Billing: Yes Source: Developed by Drs. Td Martinez, Trisha Hernandez, Fabiano Cook and colleagues, with an educational maryellen from [employer]. Thrive Questionnaire Date Thrive assessed: 08/07/24 I am a: Patient What is your living situation today?: I have a steady place to live Within the past 12 months, did the food you bought not last and you didn't have the money to get more?: Never true Within the past 12 months, did you worry whether your food would run out before you got money to buy more?: Never true Do you have trouble paying for medicines?: No Do you have trouble getting transportation to medical appointments?: No Do you have trouble paying your heating and electricity bill?: No Do you have trouble taking care of your child, family member or friend?: No Do you have trouble with day-to-day activities such as bathing, preparing meals, shopping, managing finances, etc.?: No Are you currently unemployed and looking for a job?: No Are you interested in more education?: No Please select the resources that you would like help with: None Currently or been in a relationship where the following occur: No concerns reported THRIVE Score: 0 AUDIT C Alcohol Use Questionnaire (AUDIT-C) 1. How often do you have a drink containing alcohol?: Never Total Score: 0 MULU-7 AMB Questionnaire MULU-7 Date MULU - 7 assessed: 08/07/24 Feeling nervous, anxious, or on edge: 0 = Not at all Not being able to stop or control worryin = Not at all Worrying too much about different things: 0 = Not at all Trouble relaxin = Not at all Being so restless that it is hard to sit still: 0 = Not at all Becoming easily annoyed or irritable: 0 = Not at all Feeling afraid as if something awful might happen: 0 = Not at all Total MULU-7 score (0-4 normal; 5-9 mild; 10-14 moderate; 15-21 severe): 0 Source: Developed by Drs. Td Martinez, Trisha Hernandez, Fabiano Cook and colleagues, with an educational maryellen from [employer]. MULU-7 Assessment Billing MULU-7 Assessment Tool: MULU-7 Assessment 30495 Review of Systems Const Denies fatigue, Denies fever(s), Denies headache(s) and Denies weakness Eyes Reports other (Up-to-date with her eye exams) ENT Details: Gets dental prophylaxis every 6 months Denies dysphagia, Denies dizziness, Denies headache(s) and Reports hearing loss (Wears hearing aids) Card Denies chest pain, Denies lightheadedness, Denies palpitations and Denies dyspnea Resp Denies chest congestion, Denies cough and Denies dyspnea GI Denies abdominal pain, Denies change in bowel habits, Denies dysphagia and Denies heartburn Reports no additional complaints Musc Reports no additional complaints Skin/Breast Denies breast pain, Denies breast mass, Denies dry skin, Denies lesions and Denies rash Neuro Denies dizziness, Denies headache(s) and Denies weakness Psych Reports no additional complaints Endo Denies fatigue, Denies polydipsia, Denies polyuria and Denies palpitations Mushtaq/Lymph Denies easy bruising Aller/Immun Denies seasonal rhinorrhea Physical exam (Primary Care) Vital Signs: Last Vital Signs Pulse 98 08/07/24 09:08 BP 130/68 08/07/24 09:08 Pulse Ox 97 08/07/24 09:08 Oxygen Delivery Method Room Air 08/07/24 09:08 BMI result Body Mass Index 25.1 Tobacco/Smoking Status: Tobacco use Status Tobacco use date assessed 08/07/24 08/07/24 09:23 Patient Tobacco Use Status Never used Tobacco 08/07/24 09:09 e-Cigarette/Vaping Use Never Used 08/07/24 09:09 PHQ-9: PHQ-9 Score PHQ-9: Total score 0 08/07/24 10:07 Depression Screening Interpretation: Negative Thrive Assessment: Date of Thrive Assessment Date Thrive assessed 08/07/24 08/07/24 09:23 Currently or been in a relationship where the following occur: No concerns reported Const Other: Alert oriented x3, no acute distress noted, ambulatory with normal gait Orientation/consciousness: patient oriented x3 HENAL Head: Yes normocephalic and Yes atraumatic Ears: external ears normal and EAC's normal (Has bilateral hearing aids) Eyes General: appearance normal, both eyes and all related structures Neck Neck: Yes full ROM, Yes no lymphadenopathy, Yes no meningeal signs and Yes supple Thyroid: Thyroid normal (Nonpalpable) Carotids: no bruits Resp Effort & Inspection: normal respiratory effort and able to speak in complete sentences Auscultation: clear to auscultation bilaterally Cardio Other: S1-S2 present regular rate and rhythm, no murmurs GI Inspection: Yes normal to inspection Palpation (GI): Soft to palpation, nontender, no guarding and no masses General: Yes no CVA tenderness Back/Spine/Pelvis Back: no CVA tenderness and No back tenderness Skin General skin exam: no rashes or lesions noted and turgor normal Neuro General: patient oriented x3, moves all extremities, Normal light touch and pain sensation, no meningeal signs, no focal motor deficits and CN's II-XI intact bilaterally Cognition (Neuro): normal cognition Gait exam (Neuro): Normal gait present Extrem General: Yes normal to inspection, Yes full ROM, Yes no joint enlargement, Yes no clubbing, cyanosis or edema, Yes no pedal edema, Yes no calf tenderness and Yes normal gait Psych Appearance: grossly normal and well kempt Mental Status: mental status grossly normal Speech and movement: Normal speech and movement present Affect: normal affect Attitude: cooperative Thought process: Normal thought process present Thought content: Normal thought content present Results Reviewed Results Reviewed: Laboratory Tests 04/29/24 08/05/24 06:34 07:51 Estimat Average Glucose 180 151 Hemoglobin A1c % 7.9 H 6.9 H Microalb/Creat Ratio 7.3 Name: Shila Driscoll Age/Sex: 73/F : 1950 Unit#: [id number] Attend Dr: Yumi Sifuentes MD Re08/05/24 Status: DEP REF Location: [facility] Disch: SPEC : [id number] ANA: 08/05/24 STATUS: COMP REQ : [id number] RECD: 08/05/24-[address]: Yumi Sifuentes MD COMP: 08/05/24-1230 ENTERED: 08/05/24-[address]: ORDERED: Met Prof Fast, AST, ALT, Lipid Panel Test Result Flag Reference Sodium 138 135-145 mmol/L Potassium 4.6 3.3-5.1 mmol/L CL 107 96-108 mmol/L CO2 26 22-29 mmol/L Gap 10 L 12-20 BUN 16 9-16 mg/dL Creat 0.78 0.5-1.4 mg/dL eGFR > 60 Chronic Kidney Disease: Estimated GFR < 60 mL/min/1.73m2 Severe Kidney Disease: Estimated GFR < 15 mL/min/1.73m2 FBS 133 H 60-99 mg/dL A fasting glucose of 126 mg/dl or greater on more than one occasion is considered diagnostic of diabetes. CA 9.2 8.4-10.2 mg/dL AST (GOT) 22 5-31 U/L ALT (GPT) 25 0-31 U/L Triglyceride 150 H <150 mg/dL Desirable Triglyceride: less than 150 mg/dL Borderline High Triglyceride 150-199 mg/dL High Triglyceride: 200-499 mg/dL Very High Triglyceride: greater than or equal to 5OO mg/dL Cholesterol 164 <200 mg/dL Desirable Cholesterol: less than 200 mg/dL Borderline High Cholesterol: 200-239 mg/dL High Cholesterol: greater than 239 mg/dL LDL Calculated 87 <100 mg/dL Desirable LDL: less than 100 mg/dL Near Optimal/Above Optimal LDL: 110-129 mg/dL Borderline High LDL: 130-159 mg/dL High LDL: 160-189 mg/dL Very High LDL: greater than or equal to 190 mg/dL HDL 47 >40 mg/dL Desirable HDL: greater than 40 mg/dL Note: This HDL assay may give artificially low results in patients with liver disease. Coding Level of Care Code Est Pt Level 4 (43444) Complex EM visit Add On G2211 Diagnoses Essential hypertension I10 Mixed dyslipidemia E78.2 Type 2 diabetes mellitus without complication, without long-term current use of insulin E11.9 Need for RSV immunization Z29.11 Additional Codes PHQ-9 - 12672 - PHQ-9 Billing: Yes ([id number]) MULU-7 Assessment Billing - MULU-7 Assessment Tool: MULU-7 Assessment 13168 ([id number]) Assessment & Plan Assessment & Plan (1) Essential hypertension: Code(s): I10 - Essential (primary) hypertension Category: Medical Plan: Blood pressure at goal of less than 130/80. Continue enalapril 20 mg daily Reinforced importance of following a low sodium diet, getting regular exercise, and lowering stress levels. (2) Mixed dyslipidemia: Code(s): E78.2 - Mixed hyperlipidemia Category: Medical Plan: Latest fasting labs are within normal limits, continue with rosuvastatin 5 mg taken 1 tablet every other day (3) Type 2 diabetes mellitus without complication, without long-term current use of insulin: Code(s): E11.9 - Type 2 diabetes mellitus without complications Category: Medical Plan: Improvement in diabetes control noted, with hemoglobin A1c now at 6.9%. Continue metformin ER 500 mg 1 tablet twice a day, combined this with adherence to healthy eating habits and regular exercise. Up-to-date with all her vaccinations. Will see her back in 4 months, do fasting labs prior to appointment (4) Need for RSV immunization: Code(s): Z29.11 - Encounter for prophylactic immunotherapy for respiratory syncytial virus (RSV) Plan: Recommended to get RSV vaccination Orders: Orders Lipid Panel 11/16/24 E11.9 - Type 2 diabetes mellitus without complications, E78.2 - Mixed hyperlipidemia, I10 - Essential (primary) hypertension Microalbumin, Random (w Creat) 11/16/24 E11.9 - Type 2 diabetes mellitus without complications, E78.2 - Mixed hyperlipidemia, I10 - Essential (primary) hypertension Basic Metabolic Panel Fasting 11/16/24 E11.9 - Type 2 diabetes mellitus without complications, E78.2 - Mixed hyperlipidemia, I10 - Essential (primary) hypertension Aspartate Amino Transferase 11/16/24 E11.9 - Type 2 diabetes mellitus without complications, E78.2 - Mixed hyperlipidemia, I10 - Essential (primary) hypertension Hemoglobin A1c 11/16/24 E11.9 - Type 2 diabetes mellitus without complications, E78.2 - Mixed hyperlipidemia, I10 - Essential (primary) hypertension Vitamin D 25-OH Total 11/16/24 E11.9 - Type 2 diabetes mellitus without complications, E78.2 - Mixed hyperlipidemia, I10 - Essential (primary) hypertension Alanine Aminotransferase 11/16/24 E11.9 - Type 2 diabetes mellitus without complications, E78.2 - Mixed hyperlipidemia, I10 - Essential (primary) hypertension
== END 2024-08-07 10:35 | disposition home or self-care (01) ==
PROVIDERS: PCP Internal Medicine; Visit Provider Internal Medicine
DX: I10 Essential (primary) hypertension (principal); E78.2 Mixed hyperlipidemia; E11.9 Type 2 diabetes mellitus without complications; Z29.11 Encounter for prophylactic immunotherapy for respiratory syncytial virus (RSV)

== ENCOUNTER → 2024-08-07 09:00 | Outpatient (BNVA) | payer MEDICARE, SELFPAY | PROVIDERS: PCP Internal Medicine; Visit Provider Internal Medicine | DX: E11.65 Type 2 diabetes mellitus with hyperglycemia (principal); E78.2 Mixed hyperlipidemia; I10 Essential (primary) hypertension | CPT/HCPCS: 96127; 99212 ==

== ENCOUNTER 2024-11-16 06:18 | Outpatient (REF) | payer MEDICARE, SELFPAY ==
[2024-11-16 10:38] LABS: Estimated Average Glucose 154 mg/dL; Hemoglobin A1C 190.5684 umol/L; Total Hemoglobin (HGBA1C) 3622.8416 umol/L
[2024-11-16 11:07] LABS: Alanine Aminotransferase 33 U/L (0-31); Anion Gap 13 (12-20); Aspartate Amino Transferase 26 U/L (5-31); Blood Urea Nitrogen 18 mg/dL (9-16); Calcium 9.7 mg/dL (8.4-10.2); Carbon Dioxide 25 mmol/L (22-29); Chloride 106 mmol/L (96-108); Cholesterol 175 mg/dL (<200); Estimated Glomerular Filt Rate > 60; Glucose Fasting 117 mg/dL (60-99); HDL Cholesterol 52 mg/dL (>40); LDL Cholesterol Calculated 94 mg/dL (<100); Potassium 4.2 mmol/L (3.3-5.1); Sodium 140 mmol/L (135-145); Triglycerides 145 mg/dL (<150)
[2024-11-16 11:11] LABS: Vitamin D 25-OH Total 77.6 ng/mL (>30)
[2024-11-16 11:22] LABS: Creatinine Urine 100.59 mg/dL; Microalbum/Creatinine Ratio Ur 4.9 ug/mg cr (<30)
== END 2024-11-16 06:19 | disposition home or self-care (01) ==
LOC: HO.HMGCLDS 06:18
PROVIDERS: PCP Internal Medicine; Visit Provider Internal Medicine
DX: E78.2 Mixed hyperlipidemia (principal); E11.9 Type 2 diabetes mellitus without complications; I10 Essential (primary) hypertension
CPT/HCPCS: 36415; 80048; 80061; 82043; 82306; 82570; 83036; 84450; 84460

== ENCOUNTER 2024-11-23 08:35 | Outpatient (AMB) | payer MEDICARE, SELFPAY ==
--- NOTE | 2024-11-23 08:59 | A.OFFPC_ITS ---
Vital Signs 11/23/24 09:28 Height 5 ft 1.5 in Weight 136 lb BMI 25.3 BP 130/70 Blood Pressure Location Lt brachial Position Sitting Respiration 16 Pulse 92 Pulse Source Pulse Oximeter Temp 98.1 F Temp Source Oral Pulse Oximetry (%) 97 Oxygen Delivery Method Room Air Intake Visit Reasons: PE - see comments Intake Note: Pt is here today for her PE: Last mammogram 11/11/23, colonoscopy 06/29/16 Allergies No Known Allergies [No Known Allergies*] Allergy (Verified 11/23/24 10:04) Medication List - Last Reconciled 11/23/24 by Yumi Sifuentes MD albuterol sulfate 90 mcg/actuation 2 puffs inhalation Q6H PRN antiarthritic combination no.2 (glucosamine-chondroitin) mg PO blood sugar diagnostic (Accu-Chek Fe Plus test strips) Check fasting blood sugar before eating once a day blood-glucose meter (Accu-Chek Guide Glucose Meter) Check fasting blood sugar once a day before meal enalapril maleate 20 mg PO DAILY lancets (Accu-Chek Softclix Lancets) Check blood sugar once daily as directed lancing device with lancets (Accu-Chek Softclix Lancing Device+Lancets kit) CHECK FASTING BLOOD SUGARS ONCE A DAY BEFORE A MEAL metformin ER 500 mg PO BID 3 months multivitamin 1 tab PO DAILY rosuvastatin 5 mg PO Q2D 3 months Tobacco use date assessed: 11/23/24 Fall risk assessment: No Falls in past year Last assessed Fall Risk: 11/23/24 Dental Screening Dental Screen Date: 11/23/24 Did you have a dental visit in the last 12 months?: No Did you have a dental problem in the last 6 months where you did not have access to dental care?: No Was dental information given to patient?: Patient has dentist HPI PE - see comments HPI Details 74-year-old lady with diabetes mellitus, hyperlipidemia and hypertension, here today for her physical exam. She does not want to get any screening mammograms or bone density scan but would like a referral to [facility] for her repeat colonoscopy screening, had it last done by Dr. Douglas in 2016 and is due for a recheck denies any GI symptoms, no hematochezia or abdominal cramping. She goes to [facility] for her routine diabetes retinopathy screening. Latest labs showed fasting lipids are within normal limits as well as electrolytes and renal function but hemoglobin A1c is higher at 7%. 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 Depression Screening Interpretation: Negative Depression Screening Done: Yes Source: Developed by Drs. Td Martinez, Trisha Hernandez, Fabiano Cook and colleagues, with an educational maryellen from [employer]. Thrive Questionnaire Date Thrive assessed: 08/07/24 I am a: Patient What is your living situation today?: I have a steady place to live Within the past 12 months, did the food you bought not last and you didn't have the money to get more?: Never true Within the past 12 months, did you worry whether your food would run out before you got money to buy more?: Never true Do you have trouble paying for medicines?: No Do you have trouble getting transportation to medical appointments?: No Do you have trouble paying your heating and electricity bill?: No Do you have trouble taking care of your child, family member or friend?: No Do you have trouble with day-to-day activities such as bathing, preparing meals, shopping, managing finances, etc.?: No Are you currently unemployed and looking for a job?: No Are you interested in more education?: No Please select the resources that you would like help with: None Currently or been in a relationship where the following occur: No concerns reported THRIVE Score: 0 MULU-7 AMB Questionnaire MULU-7 Date MULU - 7 assessed: 08/07/24 Feeling nervous, anxious, or on edge: 0 = Not at all Not being able to stop or control worryin = Not at all Worrying too much about different things: 0 = Not at all Trouble relaxin = Not at all Being so restless that it is hard to sit still: 0 = Not at all Becoming easily annoyed or irritable: 0 = Not at all Feeling afraid as if something awful might happen: 0 = Not at all Total MULU-7 score (0-4 normal; 5-9 mild; 10-14 moderate; 15-21 severe): 0 Source: Developed by Drs. Td Martinez, Trisha Hernandez, Fabiano Cook and colleagues, with an educational maryellen from [employer]. Review of Systems Const Denies fatigue, Denies fever(s), Denies headache(s) and Denies weakness Eyes Reports other (Up-to-date with her eye exams) ENT Details: Gets dental prophylaxis every 6 months Denies dysphagia, Denies dizziness, Denies headache(s) and Reports hearing loss (Wears hearing aids) Card Denies chest pain, Denies lightheadedness, Denies palpitations and Denies dyspnea Resp Denies chest congestion, Denies cough and Denies dyspnea GI Denies abdominal pain, Denies change in bowel habits, Denies dysphagia and Denies heartburn Reports no additional complaints Musc Reports no additional complaints Skin/Breast Denies breast pain, Denies breast mass, Denies dry skin, Denies lesions and Denies rash Neuro Denies dizziness, Denies headache(s) and Denies weakness Psych Reports no additional complaints Endo Denies fatigue, Denies polydipsia, Denies polyuria and Denies palpitations Mushtaq/Lymph Denies easy bruising Aller/Immun Denies seasonal rhinorrhea Physical exam (Primary Care) Vital Signs: Last Vital Signs Temp 98.1 F 11/23/24 09:28 Pulse 92 11/23/24 09:28 Resp 16 11/23/24 09:28 BP 130/70 11/23/24 09:28 Pulse Ox 97 11/23/24 09:28 Oxygen Delivery Method Room Air 11/23/24 09:28 BMI result Body Mass Index 25.3 Tobacco/Smoking Status: Tobacco use Status Tobacco use date assessed 11/23/24 11/23/24 09:01 Patient Tobacco Use Status Never used Tobacco 11/23/24 09:01 e-Cigarette/Vaping Use Never Used 11/23/24 09:01 Depression Screening Interpretation: Negative Thrive Assessment: Date of Thrive Assessment Date Thrive assessed 08/07/24 11/23/24 09:01 Currently or been in a relationship where the following occur: No concerns reported Const Other: Alert oriented x3, no acute distress noted, ambulatory with normal gait HENMT Head: Yes normocephalic and Yes atraumatic Ears: external ears normal and EAC's normal (Has bilateral hearing aids) Eyes General: appearance normal, both eyes and all related structures Neck Neck: Yes full ROM, Yes no lymphadenopathy, Yes no meningeal signs and Yes supple Thyroid: Thyroid normal (Nonpalpable) Chest Other: Declined breast exam Resp Effort & Inspection: normal respiratory effort and able to speak in complete sentences Auscultation: clear to auscultation bilaterally Cardio Other: S1-S2 present regular rate and rhythm, no murmurs GI Inspection: Yes normal to inspection Palpation (GI): Soft to palpation, nontender, no guarding and no masses General: Yes no CVA tenderness Back/Spine/Pelvis Back: no CVA tenderness and No back tenderness Skin General skin exam: no rashes or lesions noted and turgor normal Neuro General: moves all extremities, Normal light touch and pain sensation, no meningeal signs, no focal motor deficits and CN's II-XI intact bilaterally Cognition (Neuro): normal cognition Gait exam (Neuro): Normal gait present Extrem General: Yes normal to inspection, Yes full ROM, Yes no joint enlargement, Yes no clubbing, cyanosis or edema, Yes no pedal edema, Yes no calf tenderness and Yes normal gait Psych Appearance: grossly normal and well kempt Mental Status: mental status grossly normal Speech and movement: Normal speech and movement present Affect: normal affect Attitude: cooperative Results Reviewed Results Reviewed: Name: Shila Driscoll Age/Sex: 74/F : 1950 Unit#: [id number] Attend Dr: Yumi Sifuentes MD Re11/16/24 Status: DEP REF [facility]: [id number] Disch: SPEC : [id number] ANA: 11/16/24 STATUS: COMP REQ : [id number] RECD: 11/16/[address]: Yumi Sifuentes MD COMP: 11/16/24 ENTERED: 11/16/[address] [facility] [address]: ORDERED: Met Prof Fast, AST, ALT, Lipid Panel, Vitamin D 25-OH Test Result Flag Reference Sodium 140 135-145 mmol/L Potassium 4.2 3.3-5.1 mmol/L CL 106 96-108 mmol/L CO2 25 22-29 mmol/L Gap 13 12-20 BUN 18 H 9-16 mg/dL Creat 0.83 0.5-1.4 mg/dL eGFR > 60 Chronic Kidney Disease: Estimated GFR < 60 mL/min/1.73m2 Severe Kidney Disease: Estimated GFR < 15 mL/min/1.73m2 FBS 117 H 60-99 mg/dL A fasting glucose from 100-125 mg/dl is considered impaired (pre-diabetes). CA 9.7 8.4-10.2 mg/dL AST (GOT) 26 5-31 U/L ALT (GPT) 33 H 0-31 U/L Triglyceride 145 <150 mg/dL Desirable Triglyceride: less than 150 mg/dL Borderline High Triglyceride 150-199 mg/dL High Triglyceride: 200-499 mg/dL Very High Triglyceride: greater than or equal to 5OO mg/dL Cholesterol 175 <200 mg/dL Desirable Cholesterol: less than 200 mg/dL Borderline High Cholesterol: 200-239 mg/dL High Cholesterol: greater than 239 mg/dL LDL Calculated 94 <100 mg/dL Desirable LDL: less than 100 mg/dL Near Optimal/Above Optimal LDL: 110-129 mg/dL Borderline High LDL: 130-159 mg/dL High LDL: 160-189 mg/dL Very High LDL: greater than or equal to 190 mg/dL HDL 52 >40 mg/dL Desirable HDL: greater than 40 mg/dL Note: This HDL assay may give artificially low results in patients with liver disease. Vitamin D 25-OH 77.6 >30 ng/mL Health Based Reference Values* < 20 ng/mL Deficient 20-30 ng/mL Insufficient > 30 ng/mL Sufficient Coding Level of Care Code Est Pt Prev Care >65y(66398) Diagnoses Annual visit for general adult medical examination with abnormal findings Z00.01 Encounter for screening for malignant neoplasm of colon Z12.11 Essential hypertension I10 Mixed dyslipidemia E78.2 Type 2 diabetes mellitus without complication, without long-term current use of insulin E11.9 Screening mammography declined Z53.20 Bone density scan declined Z53.20 Assessment & Plan Assessment & Plan (1) Annual visit for general adult medical examination with abnormal findings: Code(s): Z00.01 - Encounter for general adult medical examination with abnormal findings Plan: Fasting lab results reviewed with patient with lipids within normal limits but diabetes control slipping. Goes to [facility] eye doctor for her routine eye checks/diabetes retinopathy screening, does not want to get screening mammograms or bone density scans but requested referral for colon cancer screening, referred to [facility] for her screening up-to-date with all her vaccines but does not want to get COVID booster, has not yet had her RSV vaccine advise patient that she can get at the pharmacy if she wants to get it (2) Encounter for screening for malignant neoplasm of colon: Code(s): Z12.11 - Encounter for screening for malignant neoplasm of colon Plan: Referred to [facility] for her repeat screening colonoscopy (3) Essential hypertension: Code(s): I10 - Essential (primary) hypertension Category: Medical Plan: Blood pressure at goal of less than 130/80. Continue with enalapril 20 mg a day. Reinforced importance of following a low sodium diet, getting regular exercise, and lowering stress levels. (4) Mixed dyslipidemia: Code(s): E78.2 - Mixed hyperlipidemia Category: Medical Plan: Latest fasting lipids are within normal limits, continued on rosuvastatin 5 mg taken 1 tablet every other day (5) Type 2 diabetes mellitus without complication, without long-term current use of insulin: Code(s): E11.9 - Type 2 diabetes mellitus without complications Category: Medical Plan: Latest hemoglobin A1c is at 7%, reminded to adhere to recommended diet and start exercising regularly. Will continue on metformin ER 500 mg 1 tablet twice a day and repeat labs again in six-month. Up-to-date with her diabetes retinopathy screening, goes to [facility] (6) Screening mammography declined: Code(s): Z53.20 - Procedure and treatment not carried out because of patient's decision for unspecified reasons Category: Medical Plan: Patient does not want to get any screening mammogram, advised to do regular breast exam (7) Bone density scan declined: Code(s): Z53.20 - Procedure and treatment not carried out because of patient's decision for unspecified reasons Category: Medical Plan: Does not want to get bone density scans or screening for osteoporosis Orders: Orders Hemoglobin A1c 05/19/25 E11.9 - Type 2 diabetes mellitus without complications, E78.2 - Mixed hyperlipidemia, I10 - Essential (primary) hypertension Lipid Panel 05/19/25 E11.9 - Type 2 diabetes mellitus without complications, E78.2 - Mixed hyperlipidemia, I10 - Essential (primary) hypertension Basic Metabolic Panel Fasting 05/19/25 E11.9 - Type 2 diabetes mellitus without complications, E78.2 - Mixed hyperlipidemia, I10 - Essential (primary) hypertension Alanine Aminotransferase 05/19/25 E11.9 - Type 2 diabetes mellitus without complications, E78.2 - Mixed hyperlipidemia, I10 - Essential (primary) hypertension Aspartate Amino Transferase 05/19/25 E11.9 - Type 2 diabetes mellitus without complications, E78.2 - Mixed hyperlipidemia, I10 - Essential (primary) hypertension Referrals Gastroenterology Referral Z12.11 - Encounter for screening for malignant neoplasm of colon, Z83.79 - Family history of other diseases of the digestive system Medications: Refilled metformin ER take with meals 500 mg PO BID 180 tabs 4RF 3 months E11.65 - Type 2 diabetes mellitus with hyperglycemia rosuvastatin 5 mg PO Q2D 45 tabs 4RF 3 months E11.65 - Type 2 diabetes mellitus with hyperglycemia, E78.2 - Mixed hyperlipidemia
[2024-11-23 09:28] VITALS: BP 130/70; PULSE 92; RESP 16; TEMP 36.7; O2SAT 97; BMI 25.3
== END 2024-11-23 10:02 | disposition home or self-care (01) ==
LOC: HO.HMCC 08:36
PROVIDERS: PCP Internal Medicine; Visit Provider Internal Medicine
DX: Z00.00 Encounter for general adult medical examination without abnormal findings (principal); E11.9 Type 2 diabetes mellitus without complications; Z12.11 Encounter for screening for malignant neoplasm of colon; I10 Essential (primary) hypertension; E78.2 Mixed hyperlipidemia; Z53.20 Procedure and treatment not carried out because of patient's decision for unspecified reasons

== ENCOUNTER → 2024-11-23 08:35 | Outpatient (BNVA) | payer MEDICARE, SELFPAY | PROVIDERS: PCP Internal Medicine; Visit Provider Internal Medicine | DX: Z00.01 Encounter for general adult medical examination with abnormal findings (principal); I10 Essential (primary) hypertension; E78.2 Mixed hyperlipidemia; E11.9 Type 2 diabetes mellitus without complications | CPT/HCPCS: 99397 ==

== ENCOUNTER 2025-05-07 08:17 | Outpatient (AMB) | payer MEDICARE, SELFPAY ==
--- NOTE | 2025-05-07 08:20 | A.OFFVIS_ITS ---
Vital Signs 05/07/25 08:21 Height 5 ft 2 in Weight 136 lb BMI 24.9 BP 136/68 Blood Pressure Location Lt brachial Position Sitting Pulse 96 Pulse Source Pulse Oximeter Pulse Oximetry (%) 96 Oxygen Delivery Method Room Air Intake Visit Reasons: colo screening Intake Note: New pt for recall colo screening. Last 2015. CC: Pt denies any GI sx or concerns at this time. 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 female with past medical history of diabetes, dyslipidemia, hypertension is here today for pre colonoscopy screening.? Patient was sent to us by her PCP.? Last colonoscopy in 2015 was normal.? Patient denies any gastrointestinal symptoms in the past or at present.? Denies any personal or family history of gastrointestinal disease, colon polyps, or CRC.? Denies history of difficulty with sedation or anesthesia in the past.? Negative for history of sleep apnea.? Denies any history of cardiac, renal, pulmonary, or hepatic disease.?? No history of infectious? diseases like hepatitis A, B, C, HIV or tuberculosis.? 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 History of COVID-19 Essential hypertension Surgical History Hx of colonoscopy Hx of tonsillectomy Hx of tubal ligation Family History Father Alzheimer disease Stroke Brother Leukemia Maternal Grandmother Leukemia Mother Crohn's disease Social History Housing: House Alcohol intake: never Patient Tobacco Use Status: Never used Tobacco e-Cigarette/Vaping Use: Never Used service: No Current occupational status: retired Cognitive needs: No Hearing needs: Yes Vision needs: Yes Review of Systems Const Denies weight gain and Denies weight loss ENT Reports no additional complaints, Denies dysphagia and Denies odynophagia Card Reports no additional complaints Resp Reports no additional complaints GI Denies abdominal pain, Denies belching, Denies melena, Denies bloating, Denies change in bowel habits, Denies dysphagia, Denies excessive flatus, Denies dyspepsia, Denies heartburn, Denies diarrhea, Denies loose stools, Denies nausea , Denies odynophagia and Denies vomiting Musc Reports no additional complaints Neuro Reports no additional complaints Psych Reports no additional complaints Endo Reports no additional complaints Physical Exam Vital Signs: Last Vital Signs Pulse 96 05/07/25 08:21 BP 136/68 05/07/25 08:21 Pulse Ox 96 05/07/25 08:21 Oxygen Delivery Method Room Air 05/07/25 08:21 BMI result Body Mass Index 24.9 Const General: healthy appearing, no acute distress and well developed Nutritional Appearance: well nourished Orientation/consciousness: patient oriented x3 Resp Effort & Inspection: normal respiratory effort, able to speak in complete sentences, no tracheal deviation and symmetric chest movement Auscultation: clear to auscultation bilaterally Cardio Rate: regular rate GI Inspection: Yes normal to inspection and No distended Palpation (GI): Soft to palpation, not firm, nontender and No hepatosplenomegaly present Auscultation: normal bowel sounds General: Yes no CVA tenderness Back/Spine/Pelvis Back: no CVA tenderness Skin General skin exam: elasticity normal, turgor normal and dry skin Neuro General: patient oriented x3 Psych Appearance: grossly normal Mental Status: mental status grossly normal Assessment & Plan Assessment & Plan (1) Encounter for screening for malignant neoplasm of colon: Code(s): Z12.11 - Encounter for screening for malignant neoplasm of colon Plan Patient denies any GI, cardiac or respiratory symptoms.? Denies any issues with anesthesia in the past.? Denies any history of sleep apnea.? No history infectious diseases in the past or present.? Not on any anticoagulation therapy.? No family or personal history of colon cancer or polyps.? Patient denies melena, hematochezia, unintentional weight loss or ribbon like stools.? Discussed at length the pre-procedure,? prep, diet & medications as well as what to expect prior, during and after the procedure.?? Stressed the importance of good bowel prep.? Recommended the use of Vaseline or Calmoseptine OTC & baby wipes with bowel movements to promote comfort.? ?Patient verbalizes understanding and agrees to plan of care.? She was given the opportunity to ask questions and all questions answered.? We will see her after the procedure.? Orders: Referrals GI Procedure Notification Z12.11 - Encounter for screening for malignant neoplasm of colon Medications: New bisacodyl (Dulcolax (bisacodyl)) take 4 tabs at noon the day before your colonoscopy 20 mg (4 x 5 mg) PO ONCE 4 tabs 0RF constipation 1 day Z12.11 - Encounter for screening for malignant neoplasm of colon polyethylene glycol 3350 (Miralax) As directed by gastroenterology department at [facility] 238 grams PO ONCE 238 grams 0RF Z12.11 - Encounter for screening for malignant neoplasm of colon Coding Level of Care Code New Pt Level 3 (51014) Diagnoses Encounter for screening for malignant neoplasm of colon Z12.11 Time Spent (min) 40 Comment 30 minutes spent with patient and additional 10 minutes spent reviewing her records
[2025-05-07 08:21] VITALS: BP 136/68; PULSE 96; O2SAT 96; BMI 24.9
== END 2025-05-07 08:50 | disposition home or self-care (01) ==
LOC: HO.HGI 08:17
PROVIDERS: PCP Internal Medicine; Visit Provider Nurse Practitioner Family
DX: Z01.818 Encounter for other preprocedural examination (principal); Z12.11 Encounter for screening for malignant neoplasm of colon
CPT/HCPCS: 99024

== ENCOUNTER → 2025-05-07 08:17 | Outpatient (BNVA) | payer MEDICARE, SELFPAY | PROVIDERS: PCP Internal Medicine; Visit Provider Nurse Practitioner Family | DX: Z12.11 Encounter for screening for malignant neoplasm of colon (principal) | CPT/HCPCS: 99212 ==

== ENCOUNTER 2025-05-28 06:48 | Outpatient (REF) | payer MEDICARE, SELFPAY ==
[2025-05-28 11:14] LABS: Alanine Aminotransferase 26 U/L (0-31); Anion Gap 11 (12-20); Aspartate Amino Transferase 27 U/L (5-31); Blood Urea Nitrogen 15 mg/dL (9-16); Calcium 9.5 mg/dL (8.4-10.2); Carbon Dioxide 24 mmol/L (22-29); Chloride 110 mmol/L (96-108); Cholesterol 165 mg/dL (<200); Estimated Glomerular Filt Rate > 60; HDL Cholesterol 40 mg/dL (>40); Potassium 4.3 mmol/L (3.3-5.1); Sodium 141 mmol/L (135-145); Triglycerides 284 mg/dL (<150)
== END 2025-05-28 06:49 | disposition home or self-care (01) ==
LOC: HO.HMGCLDS 06:48
PROVIDERS: PCP Internal Medicine; Visit Provider Internal Medicine
DX: E11.9 Type 2 diabetes mellitus without complications (principal); E78.2 Mixed hyperlipidemia; I10 Essential (primary) hypertension
CPT/HCPCS: 36415; 80048; 80061; 83036; 84450; 84460

== ENCOUNTER 2025-06-04 08:57 | Outpatient (AMB) | payer MEDICARE, SELFPAY ==
--- NOTE | 2025-06-04 09:23 | A.OFFPC_ITS ---
Vital Signs 06/04/25 09:48 Height 5 ft 2 in Weight 129 lb BMI 23.6 BP 132/60 Blood Pressure Location Lt brachial Position Sitting Respiration 16 Pulse 94 Pulse Source Pulse Oximeter Temp 98.5 F Temp Source Oral Pulse Oximetry (%) 98 Oxygen Delivery Method Room Air Intake Visit Reasons: 6 months f/up Intake Note: Pt is here today for her 6mo. f/u Climbing Guide Required: No Allergies No Known Allergies (No Known Allergies*) Allergy (Verified 06/04/25 09:57) Medication List - Last Reconciled 06/04/25 by Yumi Sifuentes MD albuterol sulfate 90 mcg/actuation 2 puffs inhalation Q6H PRN antiarthritic combination no.2 (glucosamine-chondroitin) mg PO bisacodyl (Dulcolax (bisacodyl)) 20 mg (4 x 5 mg) PO ONCE 1 day blood sugar diagnostic (Accu-Chek Fe Plus test strips) Check fasting blood sugar before eating once a day blood-glucose meter (Accu-Chek Guide Glucose Meter) Check fasting blood sugar once a day before meal enalapril maleate 20 mg PO DAILY lancets (Accu-Chek Softclix Lancets) Check blood sugar once daily as directed lancing device with lancets (Accu-Chek Softclix Lancing Device+Lancets kit) CHECK FASTING BLOOD SUGARS ONCE A DAY BEFORE A MEAL metformin ER 500 mg PO BID 3 months multivitamin 1 tab PO DAILY rosuvastatin 5 mg PO Q2D 3 months Tobacco use date assessed: 06/04/25 Fall risk assessment: No Falls in past year Last assessed Fall Risk: 06/04/25 Dental Screening Dental Screen Date: 06/04/25 Did you have a dental visit in the last 12 months?: No Did you have a dental problem in the last 6 months where you did not have access to dental care?: No Was dental information given to patient?: Patient declined HPI 6 months f/up HPI Details 74-year-old lady with past medical histo ry significant for diabetes mellitus, hypertension, and dyslipidemia, here today for her follow-up. She has been compliant with taking her medications currently on metformin ER 500 mg twice a day, and enalapril 20 mg daily and is on rosuvastatin 5 mg taken 1 tablet every other day. Blood pressure within normal limits, recent fasting labs done showed higher hemoglobin A1c level at 7.1%, with elevated triglycerides but normal total cholesterol and LDL cholesterol levels. She has not been exercising regularly, other than chasing her [id number] granddaughter three days a week. The patient admits to snacking on crackers at night while watching TV and eats supper early, around 5:30 p.m. Her hypertension is reportedly well-controlled with blood pressure within normal limits. For health maintenance, her last colonoscopy was on July 31 of this year. She has an upcoming eye exam scheduled for June 22. The patient has declined further Pap smears, mammograms, and bone density scans. Her last tetanus booster was in 2014, due for another one this year. She has completed her pneumonia and shingles vaccinations. She recently received a COVID vaccine on May 09 and a flu shot on May 26. The patient's was recently diagnosed with chronic kidney disease, which has been a source of stress. She also reports using hearing aids, which were not covered by Medicare. 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 1. Little interest or pleasure in doing things: not at all 2. Feeling down, depressed, or hopeless: not at all 3. Trouble falling or staying asleep, or sleeping too much: not at all 4. Feeling tired or having little energy: not at all 5. Poor appetite or overeating: not at all 6. Feeling bad about yourself - or that you are a failure or have let yourself or your family down: not at all 7. Trouble concentrating on things, such as reading the newspaper or watching television: not at all 8. Moving or speaking so slowly that other people could have noticed. Or the opposite - being so fidgety or restless that you have been moving around a lot more than usual: not at all 9. Thoughts that you would be better off or of hurting yourself in some way: not at all Total score: 0 Depression Screening Interpretation: Negative Depression Screening Done: Yes Source: Developed by Drs. Td Martinez, Trisha Hernandez, Fabiano Cook and colleagues, with an educational maryellen from [employer]. Thrive Questionnaire Date Thrive assessed: 08/07/24 I am a: Patient What is your living situation today?: I have a steady place to live Within the past 12 months, did the food you bought not last and you didn't have the money to get more?: Never true Within the past 12 months, did you worry whether your food would run out before you got money to buy more?: Never true Do you have trouble paying for medicines?: No Do you have trouble getting transportation to medical appointments?: No Do you have trouble paying your heating and electricity bill?: No Do you have trouble taking care of your child, family member or friend?: No Do you have trouble with day-to-day activities such as bathing, preparing meals, shopping, managing finances, etc.?: No Are you currently unemployed and looking for a job?: No Are you interested in more education?: No Please select the resources that you would like help with: None Currently or been in a relationship where the following occur: No concerns reported THRIVE Score: 0 AUDIT C Alcohol Use Questionnaire (AUDIT-C) 2. How many drinks containing alcohol do you have on a typical day when you are drinking?: 1 or 2 3. How often do you have six or more drinks on one occasion?: Never Total Score: 0 MULU-7 AMB Questionnaire MULU-7 Date MULU - 7 assessed: 08/07/24 Feeling nervous, anxious, or on edge: 0 = Not at all Not being able to stop or control worryin = Not at all Worrying too much about different things: 0 = Not at all Trouble relaxin = Not at all Being so restless that it is hard to sit still: 0 = Not at all Becoming easily annoyed or irritable: 0 = Not at all Feeling afraid as if something awful might happen: 0 = Not at all Total MULU-7 score (0-4 normal; 5-9 mild; 10-14 moderate; 15-21 severe): 0 Source: Developed by Drs. Td Martinez, Trisha Hernandez, Fabiano Cook and colleagues, with an educational maryellen from [employer]. Review of Systems Const Denies fatigue, Denies fever(s), Denies headache(s) and Denies weakness Eyes Details: Sees my eye doctor has an appointment 06/22/2025 Reports other (Up-to-date with her eye exams) ENT Details: Gets dental prophylaxis every 6 months Denies dysphagia, Denies dizziness, Denies headache(s) and Reports hearing loss (Wears hearing aids) Card Denies chest pain, Denies lightheadedness, Denies palpitations and Denies dyspnea Resp Denies chest congestion, Denies cough and Denies dyspnea GI Denies abdominal pain, Denies change in bowel habits, Denies dysphagia and Denies heartburn Reports no additional complaints Musc Reports no additional complaints Skin/Breast Denies breast pain, Denies breast mass, Denies dry skin, Denies lesions and Denies rash Neuro Denies dizziness, Denies headache(s) and Denies weakness Psych Reports no additional complaints Endo Denies fatigue, Denies polydipsia, Denies polyuria and Denies palpitations Mushtaq/Lymph Denies easy bruising Aller/Immun Denies seasonal rhinorrhea Physical exam (Primary Care) Vital Signs: Last Vital Signs Temp 98.5 F 06/04/25 09:48 Pulse 94 06/04/25 09:48 Resp 16 06/04/25 09:48 BP 132/60 06/04/25 09:48 Pulse Ox 98 06/04/25 09:48 Oxygen Delivery Method Room Air 06/04/25 09:48 BMI result Body Mass Index 23.6 Tobacco/Smoking Status: Tobacco use Status Tobacco use date assessed 06/04/25 06/04/25 09:25 Patient Tobacco Use Status Never used Tobacco 06/04/25 09:23 e-Cigarette/Vaping Use Never Used 06/04/25 09:23 PHQ-9: PHQ-9 Score PHQ-9: Total score 0 06/04/25 09:59 Depression Screening Interpretation: Negative Thrive Assessment: Date of Thrive Assessment Date Thrive assessed 08/07/24 06/04/25 09:23 Currently or been in a relationship where the following occur: No concerns reported Const Other: Alert oriented x3, no acute distress noted, ambulatory with normal gait HENMT Head: Yes normocephalic and Yes atraumatic Ears: external ears normal and EAC's normal (Has bilateral hearing aids) Eyes General: appearance normal, both eyes and all related structures Neck Neck: Yes full ROM, Yes no lymphadenopathy, Yes no meningeal signs and Yes supple Thyroid: Thyroid normal (Nonpalpable) Chest Other: Declined breast exam Resp Effort & Inspection: normal respiratory effort and able to speak in complete sentences Auscultation: clear to auscultation bilaterally Cardio Other: S1-S2 present regular rate and rhythm, no murmurs GI Inspection: Yes normal to inspection Palpation (GI): Soft to palpation, nontender, no guarding and no masses General: Yes no CVA tenderness Back/Spine/Pelvis Back: no CVA tenderness and No back tenderness Skin General skin exam: no rashes or lesions noted and turgor normal Neuro General: moves all extremities, Normal light touch and pain sensation, no meningeal signs, no focal motor deficits and CN's II-XI intact bilaterally Cognition (Neuro): normal cognition Gait exam (Neuro): Normal gait present Extrem General: Yes normal to inspection, Yes full ROM, Yes no joint enlargement, Yes no clubbing, cyanosis or edema, Yes no pedal edema, Yes no calf tenderness and Yes normal gait Psych Appearance: grossly normal and well kempt Mental Status: mental status grossly normal Speech and movement: Normal speech and movement present Affect: normal affect Attitude: cooperative Results Reviewed Results Reviewed: Name: Shila Driscoll Age/Sex: 74/F : 1950 Unit#: [id number] Attend Dr: Yumi Sifuentes MD Re05/28/25 Status: DEP REF Location: [facility] Disch: SPEC : [id number] ANA: 05/28/25 STATUS: COMP REQ : [id number] RECD: 05/28/25-[address]: Yumi Sifuentes MD COMP: 05/28/25 ENTERED: 05/28/[address]: ORDERED: Met Prof Fast, AST, ALT, Lipid Panel Test Result Flag Reference Sodium 141 135-145 mmol/L Potassium 4.3 3.3-5.1 mmol/L CL 110 H 96-108 mmol/L CO2 24 22-29 mmol/L Gap 11 L 12-20 BUN 15 9-16 mg/dL Creat 0.76 0.5-1.4 mg/dL eGFR > 60 Chronic Kidney Disease: Estimated GFR < 60 mL/min/1.73m2 Severe Kidney Disease: Estimated GFR < 15 mL/min/1.73m2 FBS 123 H 60-99 mg/dL A fasting glucose from 100-125 mg/dl is considered impaired (pre-diabetes). CA 9.5 8.4-10.2 mg/dL AST (GOT) 27 5-31 U/L ALT (GPT) 26 0-31 U/L Triglyceride 284 H <150 mg/dL Desirable Triglyceride: less than 150 mg/dL Borderline High Triglyceride 150-199 mg/dL High Triglyceride: 200-499 mg/dL Very High Triglyceride: greater than or equal to 5OO mg/dL Cholesterol 165 <200 mg/dL Desirable Cholesterol: less than 200 mg/dL Borderline High Cholesterol: 200-239 mg/dL High Cholesterol: greater than 239 mg/dL LDL Calculated 69 <100 mg/dL Desirable LDL: less than 100 mg/dL Near Optimal/Above Optimal LDL: 110-129 mg/dL Borderline High LDL: 130-159 mg/dL High LDL: 160-189 mg/dL Very High LDL: greater than or equal to 190 mg/dL HDL 40 L >40 mg/dL Desirable HDL: greater than 40 mg/dL Laboratory Tests 11/16/24 05/28/25 06:30 07:07 Estimat Average Glucose 157 Hemoglobin A1c % 7.1 H Urine Creatinine 100.59 Urine Microalbumin 5.0 Microalb/Creat Ratio 4.9 Coding Level of Care Code Complex visit Add On G2211 Diagnoses Essential hypertension I10 Mixed dyslipidemia E78.2 Type 2 diabetes mellitus without complication, without long-term current use of insulin E11.9 Assessment & Plan Assessment & Plan (1) Essential hypertension: Code(s): I10 - Essential (primary) hypertension Category: Medical Plan: Continue enalapril maleate 20 mg daily (2) Mixed dyslipidemia: Code(s): E78.2 - Mixed hyperlipidemia Category: Medical Plan: Continued on rosuvastatin 5 mg every other day (3) Type 2 diabetes mellitus without complication, without long-term current use of insulin: Code(s): E11.9 - Type 2 diabetes mellitus without complications Category: Medical Plan: Advised incorporating 15 minutes of daily cardio exercise and avoiding late- night snacking.he patient's glycemic control has worsened, with a recent HbA1c of 7.1%. Continue metformin ER 500 mg taken 1 tablet twice a day. Repeat another hemoglobin A1c in November 2025 together with lipid panel basic metabolic panel. Goes to my eye doctor for her routine eye exam, currently up-to-date no retinopathy seen Orders: Orders Aspartate Amino Transferase 11/17/25 E11.9 - Type 2 diabetes mellitus without complications, E78.2 - Mixed hyperlipidemia, I10 - Essential (primary) hypertension Hemoglobin A1c 11/17/25 E11.9 - Type 2 diabetes mellitus without complications, E78.2 - Mixed hyperlipidemia, I10 - Essential (primary) hypertension Vitamin D 25-OH Total 11/17/25 E11.9 - Type 2 diabetes mellitus without complications, E78.2 - Mixed hyperlipidemia, I10 - Essential (primary) hypertension Lipid Panel 11/17/25 E11.9 - Type 2 diabetes mellitus without complications, E78.2 - Mixed hyperlipidemia, I10 - Essential (primary) hypertension Basic Metabolic Panel Fasting 11/17/25 E11.9 - Type 2 diabetes mellitus without complications, E78.2 - Mixed hyperlipidemia, I10 - Essential (primary) hypertension Alanine Aminotransferase 11/17/25 E11.9 - Type 2 diabetes mellitus without c omplications, E78.2 - Mixed hyperlipidemia, I10 - Essential (primary) hypertension Microalbumin, Random (w Creat) 11/17/25 E11.9 - Type 2 diabetes mellitus without complications, E78.2 - Mixed hyperlipidemia, I10 - Essential (primary) hypertension Medications: Refilled enalapril maleate 20 mg PO DAILY 90 tabs 4RF I10 - Essential (primary) hypertension
[2025-06-04 09:48] VITALS: BP 132/60; PULSE 94; RESP 16; TEMP 36.9; O2SAT 98; BMI 23.6
== END 2025-06-04 10:57 | disposition home or self-care (01) ==
LOC: HO.HMCC 08:58
PROVIDERS: PCP Internal Medicine; Visit Provider Internal Medicine
DX: I10 Essential (primary) hypertension (principal); E78.2 Mixed hyperlipidemia; E11.9 Type 2 diabetes mellitus without complications

== ENCOUNTER → 2025-06-04 08:57 | Outpatient (BNVA) | payer MEDICARE, SELFPAY | PROVIDERS: PCP Internal Medicine; Visit Provider Internal Medicine | DX: I10 Essential (primary) hypertension (principal); E78.2 Mixed hyperlipidemia; E11.9 Type 2 diabetes mellitus without complications | CPT/HCPCS: 99212 ==